=== PATIENT | female | born 1965 | race Native Hawaiian/Other Pacific Islander ===

== ENCOUNTER 2019-02-15 08:10 | Emergency (ER) | payer OTHER ==
[~2019-02-15] VITALS: Ht 180.3 cm; Wt 90.7 kg
[2019-02-15 08:18] VITALS: TEMP 98.2
[2019-02-15 08:52] LABS: PLATELET COUNT 288 K/uL (152-353)
[2019-02-15 09:04] LABS: POTASSIUM 3.9 mmol/L (3.6-5.2); SODIUM 141 mmol/L (136-145)
[2019-02-15 10:01] VITALS: BP 148/79
== END 2019-02-15 10:01 | disposition home or self-care (01) ==
LOC: ED 08:10
PROVIDERS: Emergency Medicine
DX: K85.90 Acute pancreatitis without necrosis or infection, unspecified (principal)
CPT/HCPCS: 36415; 80053; 83690; 83735; 83880; 84484; 85027; 93005; 96374; 99284; J1885

== ENCOUNTER 2021-05-11 11:06 | Outpatient (CLI) | payer OTHER | END 2021-05-11 21:03 | disposition home or self-care (01) | LOC: MAMMO 11:06 | PROVIDERS: ATTEND Physician Assistant | DX: R53.83 Other fatigue (principal); N95.9 Unspecified menopausal and perimenopausal disorder; R23.2 Flushing; Z12.31 Encounter for screening mammogram for malignant neoplasm of breast ==

== ENCOUNTER 2022-03-06 14:35 | Outpatient (CLI) | payer OTHER | END 2022-03-06 19:39 | disposition home or self-care (01) | LOC: RAD 14:35 | PROVIDERS: ATTEND Physician Assistant | DX: M54.59 Other low back pain (principal) ==

== ENCOUNTER 2022-08-01 11:36 | Outpatient (CLI) | payer OTHER | END 2022-08-01 18:59 | disposition home or self-care (01) | LOC: RAD 11:36 | PROVIDERS: ATTEND Student in an Organized Health Care Education/Training Program | DX: M54.12 Radiculopathy, cervical region (principal); M47.812 Spondylosis without myelopathy or radiculopathy, cervical region ==